=== PATIENT | female | born 1950 | race Caucasian/White ===

== ENCOUNTER → 2017-07-18 09:50 | Outpatient (CLI) | payer MEDICARE, SELFPAY ==
[2017-07-18 11:07] LABS: Basophils # 0.1 K/mm3 (0-0.2); Basophils % 0.6 % (0.1-2.0); Eosinophils # 0.1 K/mm3 (0.0-0.4); Eosinophils % 1.4 % (0.1-12.0); Hematocrit 44.5 % (37.0-47.0); Hemoglobin 14.1 g/dL (12.2-16.2); Lymphocytes # 1.6 K/mm3 (0.7-4.5); Lymphocytes % 17.8 K/mm3 (10-50); Mean Corpuscular HGB Conc 31.7 g/dL (31.8-35.4); Mean Corpuscular Hemoglobin 31.9 pg (27.0-31.2); Mean Corpuscular Volume 100.8 fl (81-99); Mean Platelet Volume 7.9 fl (7.4-10.4); Monocytes # 0.5 K/mm3 (0.1-1.0); Monocytes % 5.9 % (1.7-9.3); Neutrophils # 6.8 K/mm3 (1.8-7.8); Neutrophils % 74.2 % (37.0-80.0); Platelet Count 342 K/mm3 (142-424); Red Blood Count 4.41 M/mm3 (4.20-5.40); Red Cell Distribution Width 12.9 % (11.5-17.5); White Blood Count 9.1 K/mm3 (4.8-10.8)
[2017-07-18 11:11] LABS: Anion Gap 9.8 mEq/L (5-15); Blood Urea Nitrogen 11 mg/dL (7-18); Carbon Dioxide 32 mmol/L (21.0-32.0); Chloride 104 mmol/L (98-107); Creatinine,Serum 0.97 mg/dL (0.55-1.02); Estimated Glomerular Filt Rate 57 ml/min (>60); GFR (African American) 69 ML/MIN (>60); Glucose 142 mg/dL (74-106); Potassium 4.8 mmoL/L (3.5-5.1); Sodium 141 mmol/L (136-145)
== END ==
PROVIDERS: Visit Provider Surgery
DX: Z01.818 Encounter for other preprocedural examination (principal); D48.5 Neoplasm of uncertain behavior of skin
CPT/HCPCS: 36415; 80048; 85025; 93005

== ENCOUNTER 2017-07-20 07:49 | Day surgery (SDC) | payer MEDICARE, SELFPAY ==
[2017-07-19 11:03] VITALS: BMI 23.6
[2017-07-20 08:17] VITALS: BP 110/68; PULSE 64; RESP 18; TEMP 36.8; O2SAT 96
[2017-07-20 08:31] LABS: POC Glucose,Bedside 119 mg/dL (70-110)
--- NOTE | 2017-07-20 09:22 | HMH.OPNOTE ---
Date of procedure: 07/20/17 Pre-op Diagnosis:: 1 cm skin neoplasm of uncertain behavior along left lower extremity (just above the knee) Post-op Diagnosis:: same Procedure performed:: Excision of 1cm skin lesion - left lower extremity Surgeon:: Fili Guzman MD SAW SETTER:: Chuck Manley Anesthesia: MAC, local Estimated blood loss (mL): 5 Operative findings:: Lesion excised in toto with 1 mm margin Superior margin marked with short suture Lateral margin marked with long suture Operative note:: After informed consent was obtained, the patient was taken to the operating room and maintained in the supine position. Monitored anesthesia care ensued and her left leg was prepped and draped in a sterile fashion. After infiltration with local anesthetic an elliptical incision was made around the lesion. The lesion was sharply excised and the dissection was taken into the deeper subcutaneous tissue. The lesion was excised in toto with a 1 mm margin and passed off for pathologic evaluation after being marked with suture (long lateral/short superior). Electrocautery was utilized to achieve hemostasis. Skin was reapproximated with 4-0 nylon in an interrupted fashion. Dressings were applied. His recovery in stable condition. Condition: stable Disposition: PACU Specimens:: Left lower extremity skin lesion Complications:: No immediate
--- NOTE | 2017-07-20 09:25 | P.OP_ITS ---
Date of procedure: 07/20/17 Pre-op Diagnosis:: 1 cm skin neoplasm of uncertain behavior along left lower extremity (just above the knee) Post-op Diagnosis:: same Procedure performed:: Excision of 1cm skin lesion - left lower extremity Surgeon:: Fili Guzman MD SUPERVISOR MULTIFOCAL LENS:: Chuck Manley Anesthesia: MAC, local Estimated blood loss (mL): 5 Operative findings:: Lesion excised in toto with 1 mm margin Superior margin marked with short suture Lateral margin marked with long suture Operative note:: After informed consent was obtained, the patient was taken to the operating room and maintained in the supine position. Monitored anesthesia care ensued and her left leg was prepped and draped in a sterile fashion. After infiltration with local anesthetic an elliptical incision was made around the lesion. The lesion was sharply excised and the dissection was taken into the deeper subcutaneous tissue. The lesion was excised in toto with a 1 mm margin and passed off for pathologic evaluation after being marked with suture (long lateral/short superior). Electrocautery was utilized to achieve hemostasis. Skin was reapproximated with 4-0 nylon in an interrupted fashion. Dressings were applied. His recovery in stable condition. Condition: stable Disposition: PACU Specimens:: Left lower extremity skin lesion Complications:: No immediate
[2017-07-20 09:27] VITALS: BP 103/66; PULSE 65; RESP 18; TEMP 36.3; O2SAT 95
[2017-07-20 09:42] VITALS: BP 113/65; PULSE 59; RESP 20; TEMP 36.3; O2SAT 98
--- NOTE | 2017-07-20 09:47 | HMH.ANESCL ---
[facility] Anesthesia Checklist - Patient Identification Patient Identification: Arm Band - Structural Data Admitted From: Home Planned Operative Procedure/s: excision left lower extremity lesion Consent for Planned Operative Procedure(s) Verified: Yes Verified Documents: Surgical Consent, History and Physical - NPO Status Verified Time NPO: 00:00 - Additional verifications Anesthesia Reactions: No - Airway Assessment C-Spine Mobility Assessed: Yes (mp2) TMJ Mobility Assessed: Yes Dentition: Poor Dentition - Neurological Assessment Level of Consciousness: Awake, Alert - Anesthesia Plan Anesthesia Risk discussed: No Anesthesia Plan: Verified ASA Class: II Anesthesia Type: MAC [facility] Anesthesia HX I have reviewed the patient's past medical history: Yes Medical History: Reports:: Diabetes Mellitus Type 2 (on meds-3), Hyperlipidemia Denies:: Cancer, Diabetes Mellitus Type 1, Internal Pacemaker, MRSA, Seizures Other Medical History: Denies: Blood Transfusion Reaction Laterality Cases: Bilateral: Other Other Surgeries: No: Pacemaker Amputation: No Fractures: No *Family Hx:: Diabetes
[2017-07-20 09:57] VITALS: BP 110/63; PULSE 68; RESP 20; TEMP 36.3; O2SAT 96
[2017-07-20 10:12] VITALS: BP 103/65; PULSE 61; RESP 20; TEMP 36.3; O2SAT 98
[2017-07-20 10:42] VITALS: BP 111/65; PULSE 56; RESP 20; TEMP 36.3; O2SAT 99
== END 2017-07-20 10:42 | disposition home or self-care (01) ==
PROVIDERS: Family Provider Physician Assistant; PCP Physician Assistant; Visit Provider Surgery
DX: L85.8 Other specified epidermal thickening (principal); E11.9 Type 2 diabetes mellitus without complications
CPT/HCPCS: 11100; 82962; 88305

== ENCOUNTER → 2017-10-23 11:16 | Outpatient (CLI) | payer MEDICARE, SELFPAY ==
[2017-10-23 11:51] LABS: Basophils # 0.1 K/mm3 (0-0.2); Basophils % 0.7 % (0.1-2.0); Eosinophils # 0.2 K/mm3 (0.0-0.4); Eosinophils % 2.4 % (0.1-12.0); Hematocrit 44.3 % (37.0-47.0); Hemoglobin 13.8 g/dL (12.2-16.2); Lymphocytes # 1.6 K/mm3 (0.7-4.5); Lymphocytes % 20.2 K/mm3 (10-50); Mean Corpuscular HGB Conc 31.2 g/dL (31.8-35.4); Mean Corpuscular Hemoglobin 30.9 pg (27.0-31.2); Mean Platelet Volume 7.3 fl (7.4-10.4); Monocytes # 0.5 K/mm3 (0.1-1.0); Neutrophils # 5.6 K/mm3 (1.8-7.8); Neutrophils % 70.7 % (37.0-80.0); Platelet Count 297 K/mm3 (142-424); Red Blood Count 4.48 M/mm3 (4.20-5.40); Red Cell Distribution Width 13.3 % (11.5-17.5); White Blood Count 7.9 K/mm3 (4.8-10.8)
[2017-10-23 15:31] LABS: Anion Gap 15.4 mEq/L (5-15); Blood Urea Nitrogen 11 mg/dL (7-18); Calcium 9.5 mg/dL (8.5-10.1); Carbon Dioxide 28 mmol/L (21.0-32.0); Chloride 104 mmol/L (98-107); Creatinine,Serum 0.96 mg/dL (0.55-1.02); Estimated Glomerular Filt Rate 58 ml/min (>60); GFR (African American) 70 ML/MIN (>60); Glucose 158 mg/dL (74-106); Potassium 4.4 mmoL/L (3.5-5.1); Sodium 143 mmol/L (136-145)
== END ==
PROVIDERS: Visit Provider Surgery
DX: Z01.818 Encounter for other preprocedural examination (principal); C44.92 Squamous cell carcinoma of skin, unspecified
CPT/HCPCS: 36415; 80048; 85025

== ENCOUNTER → 2017-12-12 14:16 | Outpatient (CLI) | payer MEDICARE, SELFPAY ==
--- NOTE | 2017-12-12 14:28 | XR_ITS ---
XR hip RT 2-3V w/pelvis HISTORY: ITS.REASON: RT HIP PAIN ORDERING PHYSICIAN: Judie Holliday PATIENT AGE: 67 years COMPARISON: 07/27/2016 FINDINGS: There is slight decrease in the joint space superiorly with minimal sclerosis of the acetabular roof suggesting mild osteoarthritis of the right hip. This is not significant change. No lytic or blastic change. No evidence of fracture or dislocation. IMPRESSION: Mild osteoarthritis of the right hip not significantly changed
--- NOTE | 2017-12-12 14:28 | XR_ITS ---
XR knee RT 3V HISTORY: ITS.REASON: RT KNEE PAIN ORDERING PHYSICIAN: Judie Holliday PATIENT AGE: 67 years COMPARISON: 07/27/2016 FINDINGS: There are mild osteoarthritic changes involving all 3 compartments with slight decrease in the joint spaces and osteophyte formation. These findings are not significantly changed. No fracture or dislocation. No lytic or blastic change. Hypertrophic changes are present involving the fibular neck medially as before. IMPRESSION: No change mild tricompartmental osteoarthritis
--- NOTE | 2017-12-12 14:28 | XR_ITS ---
XR femur RT 2V CLINICAL INDICATION: ITS.REASON: RT FEMUR PAIN ORDERING PHYSICIAN: Judie Holliday PATIENT AGE: 67 years Comparison: None FINDINGS: No fracture or dislocation. No lytic or blastic change. Mild osteoarthritis is present at the hip and knee. IMPRESSION: No acute finding. Mild osteoarthritis of the right hip and right knee
== END ==
PROVIDERS: PCP Physician Assistant; Visit Provider Physician Assistant
DX: R52 Pain, unspecified (principal)
CPT/HCPCS: 73502; 73552; 73562

== ENCOUNTER → 2018-01-28 10:40 | Outpatient (POV) | payer MEDICARE, SELFPAY | PROVIDERS: Visit Provider Physician Assistant | DX: Z00.00 Encounter for general adult medical examination without abnormal findings (principal) ==

== ENCOUNTER 2018-11-02 11:10 | Emergency (ER) | payer MEDICARE, SELFPAY ==
[2018-11-02] VITALS (9 sets, daily range): BP systolic 131–163; BP diastolic 67–97; PULSE 56–80; RESP 12–18; TEMP 36.6–36.8; O2SAT 95–100; BMI 22.1
--- NOTE | 2018-11-02 11:47 | CT_ITS ---
CT abdomen pelvis w con INDICATION: Abdominal pain. Nausea. Diarrhea ITS.REASON: periumbilcal pain ORDERING PHYSICIAN: Scooter Mijares MD PATIENT AGE: 68 years COMPARISON: Previous CTA abdomen March 2016. . TECHNIQUE: 75 cc Optiray 350 IV contrast given. Oral diluted Gastroview contrast also utilized Axial images obtained with sagittal and coronal reformats. All CT scans at the facility use one or more dose reduction, viz: automated exposure control, ma/kV adjustment per patient size (including targeted exams where dose is matched to indication, i.e. head), or iterative reconstruction technique. FINDINGS: Lower thorax. Mild bibasilar dependent atelectasis and scarring One or 2 slight dilated airways at the left lung base medially. Suggesting minor chronic changes. Heart normal size. Abdomen. There is some extremely dense contrast within the stomach and duodenum which yields streak artifact of possible diluted Gastroview whereas the more diluted. Gastroview is seen throughout the small bowel and passes through much of the colon Liver.. No focal lesions. Upper normal size liver.. generous caliber portal vein measuring up to 17 mm. Suggest correlation with LFTs .. Gallbladder:. No calcified stones. No biliary ductal dilatation. Stable left adrenal nodule 10 mm diameter unchanged since prior 2016 CT of Pancreas. No significant findings. Streak artifact from contrast partially limits visualization here Spleen normal size. Old granulomas calcification. 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 No retroperitoneal adenopathy aorta with calcification but no significant dilatation TRACT kidneys appear normal and size. Normal enhancement.. Right kidney unremarkable. Left kidney. Again see a 13.5 mm calcified rim spherical structure at the medial aspect the left kidney. Calcified cyst versus a aneurysm of left renal artery.. In either case it is stable since 2016 Ureters unremarkable. Pelvis. Small anteverted uterus. No adnexal masses. Osseous. Posterior element and facet hypertrophy at the lower L-spine is most notable. There is no spinal canal. Trace grade 1 listhesis, just over 3 mm listhesis of L4 on L5 the noted. The bulging disc. Mild degenerative changes SI joints. . GI TRACT. . large bowel: Generous Increase solid stool throughout the entire colon reflecting constipation,. On this includes prominent stool throughout the redundant sigmoid colon, and left colon. Oral contrast has passed from the small bowel into the right and transverse colon. Small bowel. Air-fluid levels are slightly increased gas and fluid throughout the small bowel. Borderline mild dilatation at similar loops. This is evident on the machine sweeper brush maker view as well as the appearing CT images.. This borderline to mild dilatation small bowel Possibly secondary to the constipation or could reflect a mild ileus or/enteritis.. No wall thickening or inflammatory changes. The terminal ileum region unremarkable. No evidence of appendicitis. Appendix is not discretely visualized. No inflammatory changes right lower quadrant. No free fluid. No free air. ...... IMPRESSION: ......... 1. Constipation. Generous increase stool is seen throughout entire colon including redundant rectosigmoid. (No air-fluid levels nor evidence of liquid stool to reflect the history of diarrhea.) 2. Moderate air-fluid levels throughout generous caliber small bowel. . Borderline dilated small bowel. With slight increased gas and fluid May reflect developing enteritis or mild ileus, or could be secondary to the patient's constipation. Clinical correlation required 3.. No acute finding
--- NOTE | 2018-11-02 11:49 | HMH.EDABDPAI ---
ED Disposition Clinical Impression: CMV (cytomegalovirus retinitis), Diabetes, Medication side effect, Elevated lipase Disposition: Home, Self-Care Condition on Discharge: Fair Instructions: DI for Acute Abdomen Additional Instructions: 1- plenty of gotrade. 2- avoid greasy food. 3- bnentyll as needed. 4- copy of the CT for follow up with the pcp. 5- to return if not better. Prescriptions: Dicyclomine HCl [Bentyl 10mg capsule] 10 mg PO Q8H #20 cap Referrals: Judie Holliday [Primary Care Provider] - - Critical Care Critical Care Time: No Attestation: On 11/02/18, the high probability of a clinically significant, sudden or life threatening deterioration of the following system(s) required my full and direct attention, intervention and personal management. The time I documented below is in addition to time spent performing reported procedures but includes the following listed in this critical care notation. Medical Decision Making - Medical Records Medical records reviewed: Yes: I reviewed the patient's medical records. - Yunier Inquiry Pt receiving controlled substance: No Yunier was queried for this patient: No Vital Signs: 11/02/18 11:23 11/02/18 12:41 11/02/18 14:19 Temperature 98 F Temperature Source Oral Pulse Rate [Left Radial] 77 77 80 Respiratory Rate 16 12 12 Blood Pressure [Right Arm] 141/97 H 163/67 H 131/71 Blood Pressure Mean [Right Arm] 111 99 91 Blood Pressure Source [Right Arm] Automatic Cuff Automatic Cuff Automatic Cuff Blood Pressure Position [Right Arm] Sitting Sitting Sitting 02 Sat by Pulse Oximetry 98 97 97 Oxygen Delivery Method Room Air Room Air Room Air 11/02/18 15:21 11/02/18 16:33 11/02/18 17:14 Temperature 98.3 F Temperature Source Oral Pulse Rate [Left Radial] 57 L 67 57 L Respiratory Rate Blood Pressure [Right Arm] 160/84 H 151/77 H 146/86 H Blood Pressure Mean [Right Arm] 109 101 106 Blood Pressure Source [Right Arm] Automatic Cuff Automatic Cuff Automatic Cuff Blood Pressure Position [Right Arm] Sitting Sitting Sitting 02 Sat by Pulse Oximetry 98 98 96 Oxygen Delivery Method Room Air Room Air Room Air 11/02/18 17:47 11/02/18 19:00 Temperature Temperature Source Pulse Rate [Left Radial] 56 L 58 L Respiratory Rate Blood Pressure [Right Arm] 146/72 H 163/72 H Blood Pressure Mean [Right Arm] 96 102 Blood Pressure Source [Right Arm] Automatic Cuff Automatic Cuff Blood Pressure Position [Right Arm] Sitting Sitting 02 Sat by Pulse Oximetry 96 95 Oxygen Delivery Method Room Air Room Air - Lab Data Lab Results 11/02/18 12:45: WBC 6.7, RBC 3.77 L, Hgb 11.4 L, Hct 36.6 L, MCV 97.0, MCH 30.2, MCHC 31.2 L, RDW 12.5, Plt Count 156, MPV 7.6, Neut % (Auto) 65.9, Lymph % (Auto) 23.4, [place]undy % (Auto) 8.6, Eos % (Auto) 1.5, Baso % (Auto) 0.6, Neut # (Auto) 4.4, Lymph # (Auto) 1.6, [place] # (Auto) 0.6, Eos # (Auto) 0.1, Baso # (Auto) 0.0 11/02/18 12:45: Sodium 142, Potassium 4.7, Chloride 104, Carbon Dioxide 30, Anion Gap 12.7, BUN 11, Creatinine 1.01, Estimated Creat Clear 52, Estimated GFR 54 L, Est GFR ( Amer) 66, Glucose 176 H, Calcium 8.5, Magnesium 1.7, Total Bilirubin 0.3, AST 22, ALT 29, Alkaline Phosphatase 65, Total Protein 6.5, Albumin 3.4, Globulin 3.1, Albumin/Globulin Ratio 1.1, Lipase 685 H Result diagrams: 11/02/18 12:45 11/02/18 12:45 Orders (Tests/Meds): ED MEDICATIONS Discontinued Medications Generic Name Dose Route Start Last Admin Trade Name Freq PRN Reason Stop Dose Admin Diatrizoate Meglum/Diatrizoate Sod 30 ml 11/02/18 12:40 11/02/18 12:52 Gastrografin 66%-10% 30ml PO 11/02/18 12:41 30 ml ONCE ONE Administration Dicyclomine HCl 10 mg 11/02/18 11:48 11/02/18 12:52 Bentyl 10mg Capsule PO 11/02/18 11:49 10 mg ONCE ONE Administration Ioversol 75 ml 11/02/18 15:09 06/22/19 15:10 Rad-Optiray 350 100ml Vial IV 11/02/18 15:10 75 ml ONCE ONE Administration Protocol S
--- NOTE | 2018-11-02 11:53 | ED_ITS ---
ED Disposition Clinical Impression: CMV (cytomegalovirus retinitis), Diabetes, Medication side effect, Elevated lipase Disposition: Home, Self-Care Condition on Discharge: Fair Instructions: DI for Acute Abdomen Additional Instructions: 1- plenty of gotrade. 2- avoid greasy food. 3- bnentyll as needed. 4- copy of the CT for follow up with the pcp. 5- to return if not better. Prescriptions: Dicyclomine HCl [Bentyl 10mg capsule] 10 mg PO Q8H #20 cap Referrals: Judie Holliday [Primary Care Provider] - - Critical Care Critical Care Time: No Attestation: On 11/02/18, the high probability of a clinically significant, sudden or life threatening deterioration of the following system(s) required my full and direct attention, intervention and personal management. The time I documented below is in addition to time spent performing reported procedures but includes the following listed in this critical care notation. Medical Decision Making - Medical Records Medical records reviewed: Yes: I reviewed the patient's medical records. - Yunier Inquiry Pt receiving controlled substance: No Yunier was queried for this patient: No Vital Signs: 11/02/18 11:23 11/02/18 12:41 11/02/18 14:19 Temperature 98 F Temperature Source Oral Pulse Rate [Left Radial] 77 77 80 Respiratory Rate 16 12 12 Blood Pressure [Right Arm] 141/97 H 163/67 H 131/71 Blood Pressure Mean [Right Arm] 111 99 91 Blood Pressure Source [Right Arm] Automatic Cuff Automatic Cuff Automatic Cuff Blood Pressure Position [Right Arm] Sitting Sitting Sitting 02 Sat by Pulse Oximetry 98 97 97 Oxygen Delivery Method Room Air Room Air Room Air 11/02/18 15:21 11/02/18 16:33 11/02/18 17:14 Temperature 98.3 F Temperature Source Oral Pulse Rate [Left Radial] 57 L 67 57 L Respiratory Rate Blood Pressure [Right Arm] 160/84 H 151/77 H 146/86 H Blood Pressure Mean [Right Arm] 109 101 106 Blood Pressure Source [Right Arm] Automatic Cuff Automatic Cuff Automatic Cuff Blood Pressure Position [Right Arm] Sitting Sitting Sitting 02 Sat by Pulse Oximetry 98 98 96 Oxygen Delivery Method Room Air Room Air Room Air 11/02/18 17:47 11/02/18 19:00 Temperature Temperature Source Pulse Rate [Left Radial] 56 L 58 L Respiratory Rate Blood Pressure [Right Arm] 146/72 H 163/72 H Blood Pressure Mean [Right Arm] 96 102 Blood Pressure Source [Right Arm] Automatic Cuff Automatic Cuff Blood Pressure Position [Right Arm] Sitting Sitting 02 Sat by Pulse Oximetry 96 95 Oxygen Delivery Method Room Air Room Air - Lab Data Lab Results 11/02/18 12:45: WBC 6.7, RBC 3.77 L, Hgb 11.4 L, Hct 36.6 L, MCV 97.0, MCH 30.2, MCHC 31.2 L, RDW 12.5, Plt Count 156, MPV 7.6, Neut % (Auto) 65.9, Lymph % (Auto) 23.4, [place] % (Auto) 8.6, Eos % (Auto) 1.5, Baso % (Auto) 0.6, Neut # (Auto) 4.4, Lymph # (Auto) 1.6, [place] # (Auto) 0.6, Eos # (Auto) 0.1, Baso # (Auto) 0.0 11/02/18 12:45: Sodium 142, Potassium 4.7, Chloride 104, Carbon Dioxide 30, Anion Gap 12.7, BUN 11, Creatinine 1.01, Estimated Creat Clear 52, Estimated GFR 54 L, Est GFR ( Amer) 66, Glucose 176 H, Calcium 8.5, Magnesium 1.7, Total Bilirubin 0.3, AST 22, ALT 29, Alkaline Phosphat
[2018-11-02 12:57] LABS: Basophils % 0.6 % (0.1-2.0); Eosinophils # 0.1 K/mm3 (0.0-0.4); Eosinophils % 1.5 % (0.1-12.0); Hematocrit 36.6 % (37.0-47.0); Hemoglobin 11.4 g/dL (12.2-16.2); Lymphocytes # 1.6 K/mm3 (0.7-4.5); Lymphocytes % 23.4 % (10-50); Mean Corpuscular HGB Conc 31.2 g/dL (31.8-35.4); Mean Corpuscular Hemoglobin 30.2 pg (27.0-31.2); Mean Platelet Volume 7.6 fl (7.4-10.4); Monocytes # 0.6 K/mm3 (0.1-1.0); Monocytes % 8.6 % (1.7-9.3); Neutrophils # 4.4 K/mm3 (1.8-7.8); Neutrophils % 65.9 % (37.0-80.0); Platelet Count 156 K/mm3 (142-424); Red Blood Count 3.77 M/mm3 (4.20-5.40); Red Cell Distribution Width 12.5 % (11.5-17.5); White Blood Count 6.7 K/mm3 (4.8-10.8)
[2018-11-02 13:06] LABS: Alanine Aminotransferase 29 U/L (12-78); Albumin Level 3.4 gm/dL (3.4-5.0); Albumin/Globulin Ratio 1.1 (1.1-1.8); Alkaline Phosphatase 65 U/L (46-116); Anion Gap 12.7 mEq/L (5-15); Aspartate Amino Transferase 22 U/L (15-37); Bilirubin,Total 0.3 mg/dL (0.2-1.0); Blood Urea Nitrogen 11 mg/dL (7-18); Calcium 8.5 mg/dL (8.5-10.1); Carbon Dioxide 30 mmol/L (21.0-32.0); Chloride 104 mmol/L (98-107); Creatinine Clearance Estimated 52 mL/min (50-200); Creatinine,Serum 1.01 mg/dL (0.55-1.02); Estimated Glomerular Filt Rate 54 ml/min (>60); GFR (African American) 66 ML/MIN (>60); Globulin 3.1 gm/dl (1.3-3.2); Glucose 176 mg/dL (74-106); Magnesium 1.7 mg/dL (1.4-2.2); Potassium 4.7 mmoL/L (3.5-5.1); Sodium 142 mmol/L (136-145); Total Protein,Serum 6.5 gm/dL (6.4-8.2)
[2018-11-02 13:07] LABS: Lipase 685 u/L (73-393)
--- NOTE | 2018-11-02 13:13 | PC.NURSE ---
pt finished gastrographin
--- NOTE | 2018-11-02 14:41 | PC.NURSE ---
pt to radiology
--- NOTE | 2018-11-02 14:45 | PC.NURSE ---
Pt to rad
--- NOTE | 2018-11-02 17:13 | PC.NURSE ---
pt resting quietly updated on plan of care. pt denies any nausea states abd pain now 5/
== END 2018-11-02 19:52 | disposition home or self-care (01) ==
PROVIDERS: Emergency Provider Emergency Medicine; PCP Physician Assistant
DX: B25.9 Cytomegaloviral disease, unspecified (principal); E11.9 Type 2 diabetes mellitus without complications; T88.7XXA Unspecified adverse effect of drug or medicament, initial encounter; R74.8 Abnormal levels of other serum enzymes; E78.5 Hyperlipidemia, unspecified; Z87.891 Personal history of nicotine dependence
CPT/HCPCS: 74177; 80053; 83690; 83735; 85025; 99284; Q9967

== ENCOUNTER → 2019-01-07 10:16 | Outpatient (POV) | payer MEDICARE, SELFPAY | PROVIDERS: Visit Provider Dermatology | DX: Z00.00 Encounter for general adult medical examination without abnormal findings (principal) ==

== ENCOUNTER → 2020-01-27 08:51 | Outpatient (CLI) | payer MEDICARE, SELFPAY ==
[2020-01-27 14:33] LABS: Basophils % 0.8 % (0.1-2.0); Eosinophils # 0.1 K/mm3 (0.0-0.4); Eosinophils % 2.7 % (0.1-12.0); Hematocrit 39.3 % (37.0-47.0); Hemoglobin 13.3 g/dL (12.2-16.2); Lymphocytes # 1.4 K/mm3 (0.7-4.5); Lymphocytes % 27.2 % (10-50); Mean Corpuscular HGB Conc 33.9 g/dL (31.8-35.4); Mean Corpuscular Hemoglobin 33.7 pg (27.0-31.2); Mean Corpuscular Volume 99.4 fl (81-99); Mean Platelet Volume 7.9 fl (7.4-10.4); Monocytes # 0.5 K/mm3 (0.1-1.0); Monocytes % 9.1 % (1.7-9.3); Neutrophils # 3.1 K/mm3 (1.8-7.8); Neutrophils % 60.2 % (37.0-80.0); Platelet Count 259 K/mm3 (142-424); Red Blood Count 3.96 M/mm3 (4.20-5.40); Red Cell Distribution Width 14.4 % (11.5-17.5); White Blood Count 5.2 K/mm3 (4.8-10.8)
[2020-01-27 14:36] LABS: Chloride 103 mmol/L (98-107); Potassium 4.7 mmoL/L (3.5-5.1); Sodium 138 mmol/L (136-145)
[2020-01-27 14:39] LABS: Alanine Aminotransferase 21 U/L (12-78); Albumin Level 4.1 g/dl (3.5-5.0); Albumin/Globulin Ratio 1.4 (1.1-1.8); Alkaline Phosphatase 66 U/L (38-126); Anion Gap 11.7 mEq/L (5-15); Aspartate Amino Transferase 32 U/L (14-36); Bilirubin,Total 0.7 mg/dl (0.2-1.3); Blood Urea Nitrogen 25 mg/dl (7-17); Carbon Dioxide 28 mmol/L (22.0-30.0); Estimated Glomerular Filt Rate 40 ml/min (>60); GFR (African American) 49 ML/MIN (>60); Globulin 2.9 g/dL (1.3-3.2)
[2020-01-27 14:40] LABS: Calcium 9.8 mg/dl (8.4-10.2); Glucose 105 mg/dl (74-100)
== END ==
PROVIDERS: Visit Provider Nurse Practitioner Family
DX: E11.9 Type 2 diabetes mellitus without complications (principal); Z79.84 Long term (current) use of oral hypoglycemic drugs
CPT/HCPCS: 36415; 80053; 83036; 85025

== ENCOUNTER → 2020-05-19 11:13 | Outpatient (CLI) | payer BC, SELFPAY ==
[2020-05-19 14:03] LABS: Chloride 104 mmol/L (98-107); Sodium 141 mmol/L (136-145)
[2020-05-19 14:04] LABS: Potassium 4.8 mmoL/L (3.5-5.1)
[2020-05-19 14:06] LABS: Alanine Aminotransferase 19 U/L (12-78); Alkaline Phosphatase 82 U/L (38-126); Anion Gap 11.8 mEq/L (5-15); Aspartate Amino Transferase 32 U/L (14-36); Bilirubin,Total 0.5 mg/dl (0.2-1.3); Blood Urea Nitrogen 18 mg/dl (7-17); Carbon Dioxide 30 mmol/L (22.0-30.0); Cholesterol 170 mg/dl (140-200); Estimated Glomerular Filt Rate 49 ml/min (>60); GFR (African American) 59 ML/MIN (>60); Triglycerides 62 mg/dl (30-150); VLDL Cholesterol 12 mg/dL (0-40)
[2020-05-19 14:07] LABS: Albumin Level 4.4 g/dl (3.5-5.0); Albumin/Globulin Ratio 1.4 (1.1-1.8); Calcium 10.2 mg/dl (8.4-10.2); Chol/HDL Ratio 2.3 (1-3.5); Globulin 3.1 g/dL (1.3-3.2); Glucose 124 mg/dl (74-100); HDL Cholesterol 73 mg/dl (40-60); Total Protein,Serum 7.5 g/dl (6.3-8.2)
[2020-05-19 14:18] LABS: Direct LDL Cholesterol 67.06 mg/dL (100-129)
[2020-05-19 14:20] LABS: Basophils # 0.1 K/mm3 (0-0.2); Basophils % 0.8 % (0.1-2.0); Eosinophils # 0.1 K/mm3 (0.0-0.4); Eosinophils % 0.8 % (0.1-12.0); Hematocrit 46.5 % (37.0-47.0); Hemoglobin 15.1 g/dL (12.2-16.2); Lymphocytes # 0.9 K/mm3 (0.7-4.5); Lymphocytes % 12.4 % (10-50); Mean Corpuscular HGB Conc 32.5 g/dL (31.8-35.4); Mean Corpuscular Hemoglobin 34.1 pg (27.0-31.2); Mean Platelet Volume 8.5 fl (7.4-10.4); Monocytes # 0.4 K/mm3 (0.1-1.0); Monocytes % 4.8 % (1.7-9.3); Neutrophils # 5.9 K/mm3 (1.8-7.8); Neutrophils % 81.2 % (37.0-80.0); Platelet Count 328 K/mm3 (142-424); Red Blood Count 4.43 M/mm3 (4.20-5.40); White Blood Count 7.2 K/mm3 (4.8-10.8)
[2020-05-19 14:27] LABS: Hemoglobin A1C 6.6 % (4.0-6.0)
== END ==
PROVIDERS: Visit Provider Nurse Practitioner Family
DX: E11.65 Type 2 diabetes mellitus with hyperglycemia (principal); E78.5 Hyperlipidemia, unspecified; Z79.84 Long term (current) use of oral hypoglycemic drugs
CPT/HCPCS: 36415; 80053; 80061; 82043; 83036; 85025

== ENCOUNTER → 2020-06-02 10:10 | Outpatient (CLI) | payer BC, SELFPAY ==
[2020-06-02 13:51] LABS: Uric Acid 3.8 mg/dl (2.5-6.2)
== END ==
PROVIDERS: Visit Provider Nurse Practitioner Family
DX: M79.89 Other specified soft tissue disorders (principal)
CPT/HCPCS: 36415; 84550

== ENCOUNTER → 2020-07-14 11:40 | Outpatient (CLI) | payer BC, SELFPAY ==
[2020-07-14 14:44] LABS: Coronavirus 19 IgG Antibody Negative (Negative); Coronavirus 19 IgM Antibody Negative (Negative)
== END ==
PROVIDERS: Visit Provider Surgery
DX: Z01.818 Encounter for other preprocedural examination (principal); Z20.822 Contact with and (suspected) exposure to COVID-19; D48.5 Neoplasm of uncertain behavior of skin; Z85.828 Personal history of other malignant neoplasm of skin
CPT/HCPCS: 36415; 86328

== ENCOUNTER 2020-07-16 09:37 | Day surgery (SDC) | payer MEDICARE, SELFPAY ==
[2020-07-14 11:32] VITALS: BMI 23.6
[2020-07-16 10:05] VITALS: BP 130/72; PULSE 71; RESP 18; TEMP 36.3; O2SAT 96
[2020-07-16 10:57] VITALS: BP 120/69; PULSE 68; RESP 18; TEMP 36.1; O2SAT 96
--- NOTE | 2020-07-16 11:03 | HMH.OPNOTE ---
Date of procedure: 07/16/20 Pre-op Diagnosis:: Skin neoplasm of uncertain behavior (right upper extremity)-0.75 cm Post-op Diagnosis:: Same Procedure performed:: Excision of right upper extremity skin lesion Surgeon:: Fili Guzman MD Anesthesia: local Estimated blood loss (mL): 1 Operative findings:: Lesion excised with 1 mm margin Operative note:: After informed consent was obtained the patient was taken to the procedure room. Her right upper extremity was prepped and draped in a sterile fashion. After infiltration with local anesthetic an elliptical incision was made around the lesion. The lesion was excised in toto and passed off for pathologic evaluation. Thermal cautery was utilized to achieve hemostasis. Skin was then reapproximated with 5-0 nylon. Dressings were applied and the patient was discharged in good condition. Condition: stable Disposition: no change Specimens:: Right upper extremity skin lesion Complications:: No immediate
[2020-07-16 11:12] VITALS: BP 120/69; PULSE 68; RESP 18; O2SAT 96
== END 2020-07-16 11:12 | disposition home or self-care (01) ==
LOC: OUTP 09:39
PROVIDERS: PCP Nurse Practitioner Family; Visit Provider Surgery
PROC: (CPT 11106; principal; 2020-07-16 10:30)
DX: L57.0 Actinic keratosis (principal); Z79.82 Long term (current) use of aspirin; Z79.899 Other long term (current) drug therapy; E11.9 Type 2 diabetes mellitus without complications; E78.5 Hyperlipidemia, unspecified; Z87.891 Personal history of nicotine dependence; Z85.828 Personal history of other malignant neoplasm of skin; Z79.84 Long term (current) use of oral hypoglycemic drugs
CPT/HCPCS: 11106; 88305

== ENCOUNTER → 2021-03-31 09:28 | Outpatient (CLI) | payer MEDICARE, SELFPAY ==
[2021-03-31 14:30] LABS: Basophils # 0.1 K/mm3 (0-0.2); Eosinophils # 0.1 K/mm3 (0.0-0.4); Eosinophils % 1.1 % (0.1-12.0); Hemoglobin 13.2 g/dL (12.2-16.2); Lymphocytes # 1.1 K/mm3 (0.7-4.5); Lymphocytes % 12.9 % (10-50); Mean Corpuscular HGB Conc 32.2 g/dL (31.8-35.4); Mean Corpuscular Hemoglobin 33.6 pg (27.0-31.2); Mean Corpuscular Volume 104.5 fl (81-99); Mean Platelet Volume 8.5 fl (7.4-10.4); Monocytes # 0.5 K/mm3 (0.1-1.0); Monocytes % 5.5 % (1.7-9.3); Neutrophils # 6.9 K/mm3 (1.8-7.8); Neutrophils % 79.4 % (37.0-80.0); Platelet Count 286 K/mm3 (142-424); Red Blood Count 3.92 M/mm3 (4.20-5.40); Red Cell Distribution Width 13.9 % (11.5-17.5); White Blood Count 8.6 K/mm3 (4.8-10.8)
[2021-03-31 14:34] LABS: Alanine Aminotransferase 24 U/L (12-78); Albumin Level 4.3 g/dl (3.5-5.0); Albumin/Globulin Ratio 1.5 (1.1-1.8); Alkaline Phosphatase 66 U/L (38-126); Anion Gap 12.5 mEq/L (5-15); Aspartate Amino Transferase 35 U/L (14-36); Bilirubin,Total 0.5 mg/dl (0.2-1.3); Blood Urea Nitrogen 25 mg/dl (7-17); Calcium 9.5 mg/dl (8.4-10.2); Carbon Dioxide 28 mmol/L (22.0-30.0); Chloride 105 mmol/L (98-107); Chol/HDL Ratio 1.9 (1-3.5); Cholesterol 163 mg/dl (140-200); Estimated Glomerular Filt Rate 49 ml/min (>60); GFR (African American) 59 ML/MIN (>60); Globulin 2.8 g/dL (1.3-3.2); Glucose 154 mg/dl (74-100); HDL Cholesterol 87 mg/dl (40-60); Potassium 4.5 mmoL/L (3.5-5.1); Sodium 141 mmol/L (136-145); Total Protein,Serum 7.1 g/dl (6.3-8.2); Triglycerides 69 mg/dl (30-150); VLDL Cholesterol 14 mg/dL (0-40)
[2021-03-31 14:45] LABS: Direct LDL Cholesterol 70.58 mg/dL (100-129)
[2021-03-31 14:55] LABS: Free Thyroxine Index 2.8 ug/dL (5.93-13.13); T4 (Thyroxine) 8.8 ug/dl (5.53-11.0); Triiodothryronine (T3) Uptake 32 % (23.5-40.5)
[2021-03-31 15:08] LABS: Thyroid Stimulating Hormone 2.37 uIU/mL (0.465-4.68)
[2021-03-31 15:47] LABS: Hemoglobin A1C 6.9 % (4.0-6.0)
== END ==
LOC: LAB.CARL 09:30
PROVIDERS: Visit Provider Nurse Practitioner Family
DX: E11.65 Type 2 diabetes mellitus with hyperglycemia (principal); R53.83 Other fatigue; E78.5 Hyperlipidemia, unspecified; Z79.84 Long term (current) use of oral hypoglycemic drugs
CPT/HCPCS: 36415; 80053; 80061; 82043; 83036; 84436; 84443; 84479; 85025

== ENCOUNTER → 2021-05-04 10:09 | Outpatient (CLI) | payer MEDICARE, SELFPAY ==
[2021-05-04 13:56] LABS: Chloride 105 mmol/L (98-107); Sodium 139 mmol/L (136-145)
[2021-05-04 13:57] LABS: Potassium 4.6 mmoL/L (3.5-5.1)
[2021-05-04 13:59] LABS: Blood Urea Nitrogen 27 mg/dl (7-17); Estimated Glomerular Filt Rate 49 ml/min (>60); GFR (African American) 59 ML/MIN (>60)
[2021-05-04 14:00] LABS: Anion Gap 10.6 mEq/L (5-15); Calcium 9.6 mg/dl (8.4-10.2); Carbon Dioxide 28 mmol/L (22.0-30.0); Glucose 86 mg/dl (74-100)
== END ==
LOC: LAB.CARL 10:10
PROVIDERS: Visit Provider Nurse Practitioner Family
DX: E11.65 Type 2 diabetes mellitus with hyperglycemia (principal); Z79.84 Long term (current) use of oral hypoglycemic drugs
CPT/HCPCS: 36415; 80048; 82043

== ENCOUNTER → 2021-06-01 11:59 | Outpatient (CLI) | payer MEDICARE, SELFPAY | PROVIDERS: Visit Provider Nurse Practitioner | DX: Z20.822 Contact with and (suspected) exposure to COVID-19 (principal) | CPT/HCPCS: C9803; U0003; U0005 ==

== ENCOUNTER → 2021-07-26 09:09 | Outpatient (CLI) | payer MEDICARE, SELFPAY ==
[2021-07-26 14:09] LABS: Basophils % 0.6 % (0.1-2.0); Eosinophils # 0.1 K/mm3 (0.0-0.4); Eosinophils % 2.2 % (0.1-12.0); Hematocrit 42.6 % (37.0-47.0); Hemoglobin 13.1 g/dL (12.2-16.2); Lymphocytes # 1.2 K/mm3 (0.7-4.5); Lymphocytes % 20.6 % (10-50); Mean Corpuscular HGB Conc 30.8 g/dL (31.8-35.4); Mean Corpuscular Hemoglobin 33.2 pg (27.0-31.2); Mean Corpuscular Volume 107.7 fl (81-99); Mean Platelet Volume 9.8 fl (7.4-10.4); Monocytes # 0.4 K/mm3 (0.1-1.0); Monocytes % 6.4 % (1.7-9.3); Neutrophils # 4.2 K/mm3 (1.8-7.8); Neutrophils % 70.2 % (37.0-80.0); Platelet Count 309 K/mm3 (142-424); Red Blood Count 3.95 M/mm3 (4.20-5.40)
[2021-07-26 14:44] LABS: Alanine Aminotransferase 20 U/L (12-78); Albumin Level 4.2 g/dl (3.5-5.0); Albumin/Globulin Ratio 1.8 (1.1-1.8); Alkaline Phosphatase 67 U/L (38-126); Anion Gap 12.4 mEq/L (5-15); Aspartate Amino Transferase 27 U/L (14-36); Bilirubin,Total 0.5 mg/dl (0.2-1.3); Blood Urea Nitrogen 21 mg/dl (7-17); Calcium 9.3 mg/dl (8.4-10.2); Carbon Dioxide 24 mmol/L (22.0-30.0); Chloride 108 mmol/L (98-107); Chol/HDL Ratio 1.9 (1-3.5); Cholesterol 148 mg/dl (140-200); Estimated Glomerular Filt Rate 62 ml/min (>60); GFR (African American) 74 ML/MIN (>60); Globulin 2.3 g/dL (1.3-3.2); Glucose 149 mg/dl (74-100); HDL Cholesterol 76 mg/dl (40-60); Potassium 4.4 mmoL/L (3.5-5.1); Sodium 140 mmol/L (136-145); Total Protein,Serum 6.5 g/dl (6.3-8.2); Triglycerides 65 mg/dl (30-150); VLDL Cholesterol 13 mg/dL (0-40)
[2021-07-26 14:55] LABS: Direct LDL Cholesterol 57.92 mg/dL (100-129)
[2021-07-26 16:53] LABS: Free Thyroxine Index 2.9 ug/dL (5.93-13.13); T4 (Thyroxine) 8.8 ug/dl (5.53-11.0); Triiodothryronine (T3) Uptake 33 % (23.5-40.5)
[2021-07-26 17:07] LABS: Thyroid Stimulating Hormone 2.38 uIU/mL (0.465-4.68)
[2021-07-26 17:25] LABS: Hemoglobin A1C 6.8 % (4.0-6.0)
== END ==
LOC: LAB.CARL 09:09
PROVIDERS: Visit Provider Nurse Practitioner Family
DX: E11.65 Type 2 diabetes mellitus with hyperglycemia (principal); E78.5 Hyperlipidemia, unspecified; Z79.84 Long term (current) use of oral hypoglycemic drugs
CPT/HCPCS: 36415; 80053; 80061; 82043; 83036; 84436; 84443; 84479; 85025

== ENCOUNTER → 2022-05-02 10:54 | Outpatient (POV) | payer MEDICARE, SELFPAY | PROVIDERS: Visit Provider Dermatology | DX: Z00.00 Encounter for general adult medical examination without abnormal findings (principal) ==

== ENCOUNTER 2023-09-05 11:11 | Outpatient (POV) | payer MEDICARE, SELFPAY ==
[2023-09-05 11:19] VITALS: BP 124/72; PULSE 70; RESP 18; O2SAT 95; BMI 20.2
--- NOTE | 2023-09-05 12:01 | A.OFFVIS_ITS ---
HPI Data of Consult Patient: new to practice Consult date: 09/05/23 Requesting Physician: Indira Jensen APRN Primary Care Provider: Ivory Granda Consult Narrative Reason for consult: Bilateral leg pain, low back History of present illness: Ms. Bradshaw is a 73 year old female who presents today as a new patient. She is a referral from Judie Granda's office. Today she rates her pain an 7 out of 10. Patient states her pain is primarily in her bilateral lower extremities. She does state that the the left leg is the worst leg. Patient describes this as a sharp painful sensation that is very sensitive to even the slightest touch. Patient states that she has had leg issues for some time however these progressi vely worsened in April unrelated to any specific injury. Patient states that she did have a right hip replacement done recently and then the symptoms just seem to progress from a year. Patient does state that she has gone to a vascular surgeon who did end up doing vein stripping on the left leg however the pain has continued. Patient states that they did do a venous Doppler to rule out blood clots and at her last visit said that they did not have any other recommendations other than to possibly see a pain doctor. Patient does state that her pain interferes with her ability to perform activities of daily living such as cooking and cleaning. Patient does state that she has chronic low back pain and a lot of it revolves around a fall that she experiences a few years ago that ended up causing fractures in her back. Patient does state that she continues to have chronic pain in this area. Patient reports that her legs take constantly red with decreased sensation. Patient has tried [id number] medications and heat and ice along with topicals with minimal relief. Patient is interested in any help we may be able to provide. Patient has had physical therapy recently for her hip replacement however states that she has not noticed any additional improvement in her leg symptoms. Patient does have chronic kidney disease and cannot tolerate NSAIDs.Patient has been given a short-term dose of tramadol from the vascular doctor and is on gabapentin. Her Yunier has been reviewed and is appropriate. CC: Indira Jensen APRN [facility] Disclaimer: The information contained in this section may have been updated after the patient was seen, as this information can be updated by other users. Medical History (Updated 09/05/23 @ 12:07 by Indira A Jensen, [employer]OTECTION ENGINEER) CKD (chronic kidney disease) HLD (hyperlipidemia) Cancer Type 2 diabetes mellitus Surgical History (Updated 09/05/23 @ 11:23 by Cha Payton RN) Status post total hip replacement, right Family History (Updated 09/05/23 @ 11:24 by Cha Payton RN) Other Diabetes Hypertension Rheumatoid arthritis Social History (Updated 09/05/23 @ 11:41 by Cha Paytno RN) Smoking Status: Former smoker tobacco type: cigarettes packs per day: 1 second hand exposure: No alcohol intake: never counseling provided: none substance use type: denies use current occupational status: retired Travel in the last 8 weeks: None household members: family housing: house current occupational exposures/hazards: No caffeine: No Review of Systems Review of Systems Review of systems:: pertinent systems reviewed and negative unless documented below Review of systems (narrative): Review of Systems: General: No recent weight changes, no fever, no sleep disturbances Respiratory: No cough, no shortness of air, no recurring pulmonary infections Cardiovascular/peripheral vascular: No chest pain, no palpitations, no edema, no shortness of breath Gastrointestinal: No new onset incontinence, normal bowel movements reported Genitourinary: No new onset incontinence Musculoskeletal: Low back pain, bilateral leg pain Psychiatric: [Normal mood/affect] Neurological: [Denies weakness in extremities], [denies balance issues] Meds Home Medications and Allergies Home Medications Medication Instructions Recorded Confirmed Type rosuvastatin 10 mg tablet 10 mg PO ONCE CHOLESTEROL 07/03/17 09/05/23 History pioglitazone 30 mg tablet 30 mg PO DAILY Diabetes #90 tabs 04/23/19 09/05/23 History ciclopirox 8 % topical solution 1 applic topical DAILY toenail 11/05/19 09/05/23 Rx fungus 3 months #6.6 mL lisinopril 2.5 mg tablet 2.5 mg PO DAILY High blood pressure 05/12/20 09/05/23 History glipizide 10 mg tablet, extended 10 ea PO DAILY Diabetes 08/23/21 09/05/23 History release 24 hr metformin 1,000 mg tablet 1,000 mg PO BID 11/22/21 09/05/23 History New Prescriptions to Start Prescriptions: Allergies Allergy/AdvReac Type Severity Reaction Status Date / Time NSAIDS (Non-Steroidal Allergy Verified 09/05/23 11:23 Anti-Inflamma Objective Vital signs: Pulse Resp BP Pulse Ox O2 Del Method 70 18 124/72 95 Room Air 09/05/23 11:19 09/05/23 11:19 09/05/23 11:19 09/05/23 11:19 09/05/23 11:19 Narrative: Physical Exam: General: Alert and oriented x3, no acute distress, pleasant and cooperative Lungs: Respirations even and unlabored, symmetrical chest expansion Eyes: PERRL Musculoskeletal: Flexion and extension of lumbar [spine] somewhat guarded secondary to pain, [antalgic gait noted] Neurological: Speech clear, no gross sensory deficit Skin: Bilateral lower extremities have erythema throughout with varicose veins present, warm to touch minimal hair follicles and shiny in appearance Assessment and Plan *Assessment and plan (1) Peripheral vascular disease: Status: Acute Category: Medical Code(s): I73.9 - Peripheral vascular disease, unspecified (2) Lumbar radiculopathy: Status: Acute Category: Medical Code(s): M54.16 - Radiculopathy, lumbar region (3) Low back pain: Status: Acute Qualifiers: Chronicity: chronic Back pain laterality: bilateral Sciatica presence: unspecified whether sciatica present Qualified Code(s): M54.50 - Low back pain, unspecified; G89.29 - Other chronic pain Category: Medical Code(s): M54.50 - Low back pain, unspecified (4) Degenerative disc disease, lumbar: Status: Acute Category: Medical Code(s): M51.36 - Other intervertebral disc degeneration, lumbar region Plan Patient was discussed that her bilateral leg appearance does seem to present as peripheral vascular disease. I also discussed with the patient that due to her chronic low back pain and lumbar stenosis that was mentioned on her prior imaging that some of her leg symptoms may be related to this narrowing. I have discussed with the patient I will order a compounded cream to see if that helps with her overall leg pain and sensitivity to touch. I have discussed in future that she may benefit from a lumbar epidural steroid injection or even possibly more consistent relief with a spinal cord stimulator trial. Patient would like to try the cream first before proceeding forward with any injections. We will follow-up with her in 1 month for reevaluation of symptoms and plan of care. Patient has been instructed to contact the clinic with any concerns before the next appointment. Dr. Serrano has reviewed this note and agrees with this plan of care. This note was dictated using voice recognition software and make contain errors or omissions.
== END 2023-09-05 23:59 | disposition home or self-care (01) ==
PROVIDERS: PCP Nurse Practitioner Family; Visit Provider Nurse Practitioner Family
DX: I73.9 Peripheral vascular disease, unspecified (principal); M51.16 Intervertebral disc disorders with radiculopathy, lumbar region; M54.50 Low back pain, unspecified; G89.29 Other chronic pain
CPT/HCPCS: 99202; G0463